=== PATIENT | male | born 1965 | race Hispanic/Latino ===

== ENCOUNTER 2024-05-06 08:31 | Inpatient (IN) | payer OTHER ==
[2024-05-06] VITALS (7 sets, daily range): BP systolic 127–152; BP diastolic 71–84; PULSE 79–92; RESP 16–18; TEMP 97.9–98.4; O2SAT 100
[~2024-05-06] VITALS: Ht 177.8 cm; Wt 74.4 kg
[~2024-05-06 08:31] MED LIST: DOXYCYCLINE HY100 MG PO; LEVEMIR100 UNIT/1 SC; LISINOPRIL10 MG PO; NEURONTIN100 MG PO; NOVOLIN R100 UNIT/1 SC
[2024-05-06 09:33] LABS: BASOPHILS % 0.5 % (0.0-1.0); EOSINOPHILS # (AUTO) 0.2 (0.0-0.4); EOSINOPHILS % 1.7 % (0.0-6.0); HEMATOCRIT 42.3 % (38.2-49.6); HEMOGLOBIN 14.1 g/dL (14.0-18.0); LYMPHOCYTES % 22.7 % (18.0-39.1); MEAN CORPUSCULAR HEMOGLOBIN 32.9 pg (28-32); MEAN CORPUSCULAR HGB CONC 33.3 g/dL (31-35); MEAN CORPUSCULAR VOLUME 98.8 fL (81-99); MONOCYTES # (AUTO) 0.7 (0.2-0.8); MONOCYTES % 7.5 % (4.4-11.3); NEUTROPHILS % 67.1 % (38.7-80.0); PLATELET COUNT 198 x10e3/uL (140-360); RED BLOOD COUNT 4.28 x10e6/uL (4.3-5.7); RED CELL DISTRIBUTION WIDTH 12.2 % (11.7-14.4); WHITE BLOOD COUNT 8.85 x10e3/uL (4.8-10.8)
[2024-05-06] MEDS: Vancomycin IV 1 GM in SODIUM CHLORIDE 0.9% 250ML 250 ML IV ONE (09:59)
[2024-05-06 10:07] LABS: ALBUMIN/GLOBULIN RATIO 1.3 (0.8-2.0); ANION GAP 16.5 mmol/L (8-16); BILIRUBIN,TOTAL 0.7 mg/dL (0.2-1.2); CALCIUM 9.9 mg/dL (8.4-10.2); CREATININE, SERUM 0.83 mg/dL (0.72-1.25); POTASSIUM 4.5 mmol/L (3.5-5.1); TOTAL PROTEIN 7.1 g/dL (6.5-8.1)
[2024-05-06] MEDS ORDERED: ONDANSETRON HCL INJ 2MG/ML 2ML 2 MG/ML VIAL IV PRN (12:30)
[2024-05-06] MEDS ORDERED: SODIUM CHLORIDE FLUSH 10 ML SYR INJ PRN (12:30)
[2024-05-06] MEDS ORDERED: DEXTROSE 50% SYRINGE 50 ML IV PRN (16:30)
[2024-05-06] MEDS: INSULIN REGULAR, HUMAN 100 UNIT/1 ML SQ SCH (16:48)
[2024-05-06] MEDS ORDERED: ACETAMINOPHEN 325 MG TAB PO PRN (17:15)
[2024-05-06] MEDS ORDERED: HYDRALAZINE HCL 20 MG/ML VIAL IV PRN (17:15)
[2024-05-06] MEDS ORDERED: BISACODYL 10 MG SUPP PR PRN (17:15)
[2024-05-06] MEDS ORDERED: NOVOLIN R100 UNIT/3 SC (17:53)
[2024-05-06] MEDS ORDERED: PRAVASTATIN SOD20 MG PO (17:53)
[2024-05-06] MEDS ORDERED: INSULIN DETEMIR SC (17:53)
[2024-05-06] MEDS ORDERED: Morphine 2mg Syringe 2 MG/ML SYR IV PRN (21:00)
[2024-05-06] MEDS ORDERED: HYDROCODONE/APAP 5MG-325MG TAB PO PRN (21:00)
[2024-05-06] MEDS: SIMVASTATIN 20 MG TAB PO SCH (21:02)
[2024-05-06] MEDS: LISINOPRIL 10 MG TAB PO SCH (21:03)
[2024-05-06] MEDS: Vancomycin IV 1 GM in SODIUM CHLORIDE 0.9% 250ML 250 ML IV SCH (21:06)
[2024-05-06] MEDS: INSULIN GLARGINE 100 UNITS/ML VIAL SQ SCH (21:15)
[2024-05-07 04:40] VITALS: BP 141/83; PULSE 91; RESP 18; TEMP 97.9; O2SAT 100
[2024-05-07 05:45] LABS: BASOPHILS # (AUTO) 0.1 (0.0-0.1); BASOPHILS % 0.9 % (0.0-1.0); EOSINOPHILS # (AUTO) 0.2 (0.0-0.4); HEMATOCRIT 41.4 % (38.2-49.6); HEMOGLOBIN 13.9 g/dL (14.0-18.0); LYMPHOCYTES # (AUTO) 1.7 (1.0-3.2); LYMPHOCYTES % 29.3 % (18.0-39.1); MEAN CORPUSCULAR HEMOGLOBIN 32.9 pg (28-32); MEAN CORPUSCULAR HGB CONC 33.6 g/dL (31-35); MEAN CORPUSCULAR VOLUME 98.1 fL (81-99); MONOCYTES # (AUTO) 0.5 (0.2-0.8); MONOCYTES % 8.2 % (4.4-11.3); NEUTROPHILS # (AUTO) 3.3 (2.1-6.9); NEUTROPHILS % 58.2 % (38.7-80.0); PLATELET COUNT 194 x10e3/uL (140-360); RED BLOOD COUNT 4.22 x10e6/uL (4.3-5.7)
[2024-05-07 06:02] LABS: INR 0.96; PROTHROMBIN TIME 13.3 seconds (11.9-14.5)
[2024-05-07 06:03] LABS: PARTIAL THROMBOPLASTIN TIME 27.8 seconds (23.8-35.5)
[2024-05-07 06:16] LABS: ALBUMIN 3.5 g/dL (3.5-5.0); ALBUMIN/GLOBULIN RATIO 1.3 (0.8-2.0); ANION GAP 14.2 mmol/L (8-16); BILIRUBIN,TOTAL 0.7 mg/dL (0.2-1.2); CREATININE, SERUM 0.82 mg/dL (0.72-1.25); POTASSIUM 4.2 mmol/L (3.5-5.1); TOTAL PROTEIN 6.2 g/dL (6.5-8.1)
[2024-05-07 06:46] LABS: CHOL/HDL RATIO 4.9 (3.9-4.7); MAGNESIUM 1.7 MG/DL (1.3-2.1)
[2024-05-07 07:57] VITALS: BP 145/77; PULSE 96; RESP 16; TEMP 98.6; O2SAT 98
[2024-05-07 07:58] VITALS: BP 145/77; PULSE 96; RESP 16; TEMP 98.6; O2SAT 98
[2024-05-07] MEDS: NICOTINE 14 MG/EA PATCH TOP SCH (09:11)
[2024-05-07] MEDS: DOCUSATE SODIUM 100 MG CAP PO SCH (09:11)
[2024-05-07] MEDS: SENNOSIDES 8.6 MG TAB PO SCH (09:11)
[2024-05-07 11:35] VITALS: BP 119/71; PULSE 82; RESP 18; TEMP 98.6; O2SAT 98
[2024-05-07 15:30] VITALS: BP 99/58; PULSE 81; RESP 16; TEMP 98.6; O2SAT 99
[2024-05-07 17:08] LABS: THYROID STIMULATING HORMONE 1.34 uIU/mL (0.350-4.940)
[2024-05-07] MEDS: MAGNESIUM SULFATE 2GM/50ML 50 ML IV ONE (18:41)
[2024-05-07 20:00] VITALS: BP 127/68; PULSE 78; RESP 18; TEMP 98.4; O2SAT 98
[2024-05-07] MEDS: INSULIN GLARGINE 100 UNITS/ML VIAL SQ SCH (21:18)
[2024-05-08] VITALS (7 sets, daily range): BP systolic 124–147; BP diastolic 69–78; PULSE 73–81; RESP 18–20; TEMP 97.6–98.5; O2SAT 100
[2024-05-08 06:23] LABS: BASOPHILS # (AUTO) 0.1 (0.0-0.1); BASOPHILS % 0.7 % (0.0-1.0); EOSINOPHILS # (AUTO) 0.3 (0.0-0.4); EOSINOPHILS % 4.1 % (0.0-6.0); HEMATOCRIT 40.3 % (38.2-49.6); HEMOGLOBIN 13.3 g/dL (14.0-18.0); LYMPHOCYTES # (AUTO) 1.9 (1.0-3.2); LYMPHOCYTES % 26.3 % (18.0-39.1); MEAN CORPUSCULAR HEMOGLOBIN 32.9 pg (28-32); MEAN CORPUSCULAR VOLUME 99.8 fL (81-99); MONOCYTES # (AUTO) 0.7 (0.2-0.8); MONOCYTES % 9.7 % (4.4-11.3); NEUTROPHILS # (AUTO) 4.2 (2.1-6.9); NEUTROPHILS % 58.8 % (38.7-80.0); PLATELET COUNT 180 x10e3/uL (140-360); RED BLOOD COUNT 4.04 x10e6/uL (4.3-5.7); RED CELL DISTRIBUTION WIDTH 11.7 % (11.7-14.4); WHITE BLOOD COUNT 7.08 x10e3/uL (4.8-10.8)
[2024-05-08 06:53] LABS: ANION GAP 11.3 mmol/L (8-16); CALCIUM 8.8 mg/dL (8.4-10.2); CREATININE, SERUM 0.89 mg/dL (0.72-1.25); MAGNESIUM 1.8 MG/DL (1.3-2.1); POTASSIUM 4.3 mmol/L (3.5-5.1)
[2024-05-08] MEDS: INSULIN REGULAR, HUMAN 100 UNIT/1 ML SQ SCH (08:56)
[2024-05-08] MEDS: ASPIRIN 325 MG TAB EC PO ONE (11:05)
[2024-05-08] MEDS: CLOPIDOGREL BISULFATE 75 MG TAB PO ONE (11:07)
[2024-05-08] MEDS ORDERED: SODIUM CHLORIDE 0.9% 100 ML ONE (15:25)
[2024-05-08] MEDS ORDERED: IOPAMIDOL 370 MG/ML 100 ML INFUS..BTL INJ ONE ×2 (15:25)
[2024-05-08] MEDS: ATORVASTATIN 40 MG TAB PO SCH (21:37)
[2024-05-08] MEDS: VANCOMYCIN 1.25GM/250 ML (PEG) 250 ML IV SCH (23:13)
[2024-05-09] VITALS (7 sets, daily range): BP systolic 111–158; BP diastolic 64–89; PULSE 72–84; RESP 17–19; TEMP 97.4–98.3; O2SAT 98–100
[2024-05-09 05:55] LABS: BASOPHILS % 0.6 % (0.0-1.0); EOSINOPHILS # (AUTO) 0.3 (0.0-0.4); EOSINOPHILS % 4.4 % (0.0-6.0); HEMATOCRIT 38.2 % (38.2-49.6); HEMOGLOBIN 12.8 g/dL (14.0-18.0); LYMPHOCYTES # (AUTO) 1.7 (1.0-3.2); LYMPHOCYTES % 24.4 % (18.0-39.1); MEAN CORPUSCULAR HEMOGLOBIN 32.7 pg (28-32); MEAN CORPUSCULAR HGB CONC 33.5 g/dL (31-35); MEAN CORPUSCULAR VOLUME 97.7 fL (81-99); MONOCYTES # (AUTO) 0.6 (0.2-0.8); MONOCYTES % 8.9 % (4.4-11.3); NEUTROPHILS # (AUTO) 4.1 (2.1-6.9); NEUTROPHILS % 61.3 % (38.7-80.0); PLATELET COUNT 168 x10e3/uL (140-360); RED BLOOD COUNT 3.91 x10e6/uL (4.3-5.7); RED CELL DISTRIBUTION WIDTH 11.9 % (11.7-14.4); WHITE BLOOD COUNT 6.76 x10e3/uL (4.8-10.8)
[2024-05-09 06:15] LABS: ANION GAP 11.8 mmol/L (8-16); CALCIUM 8.9 mg/dL (8.4-10.2); CREATININE, SERUM 0.74 mg/dL (0.72-1.25); POTASSIUM 3.8 mmol/L (3.5-5.1)
[2024-05-09] MEDS: CLOPIDOGREL BISULFATE 75 MG TAB PO SCH (08:26)
[2024-05-09] MEDS: ASPIRIN 81 MG ENTERIC COATED PO SCH (08:26)
[2024-05-09] MEDS: SODIUM CHLORIDE 0.9% 250ML 250 ML ONE (22:12)
[2024-05-10] VITALS: BP 135/80; PULSE 96; RESP 19; TEMP 98.4; O2SAT 100
[2024-05-10 04:00] VITALS: BP 152/88; PULSE 97; RESP 18; TEMP 98.4; O2SAT 100
[2024-05-10 08:21] VITALS: BP 146/86; PULSE 86; RESP 17; TEMP 98.7; O2SAT 98
[2024-05-10 09:25] VITALS: BP 146/86; PULSE 86; RESP 17; TEMP 98.7; O2SAT 98
[2024-05-10] MEDS ORDERED: BACTRIM DS TAB1 EACH PO (10:45)
[2024-05-10] MEDS ORDERED: ASPIRIN EC81 MG PO (10:45)
[2024-05-10] MEDS ORDERED: PLAVIX75 MG PO (10:45)
[2024-05-10] MEDS ORDERED: LEVEMIR100 UNIT/1 SC (11:07)
[2024-05-10] MEDS ORDERED: NOVOLIN R100 UNIT/3 SC (11:07)
[2024-05-10] MEDS ORDERED: ATORVASTATIN CA40 MG PO (11:46)
[2024-05-10] MEDS ORDERED: ONDANSETRON HCL 4 MG ORAL DISINTEGRATING TAB PO PRN (12:15)
== END 2024-05-10 12:15 | disposition home or self-care (01) | DRG 300 ==
LOC: ER 08:55 → ERHOLD 12:20 → MED/SURG3 13:51 → OBSVTOIN 05-07 17:06
PROVIDERS: ADMIT Internal Medicine; ATTEND Internal Medicine
DX: E11.51 Type 2 diabetes mellitus with diabetic peripheral angiopathy without gangrene (principal); L03.115 Cellulitis of right lower limb; L97.516 Non-pressure chronic ulcer of other part of right foot with bone involvement without evidence of necrosis; E11.621 Type 2 diabetes mellitus with foot ulcer; E11.42 Type 2 diabetes mellitus with diabetic polyneuropathy; E11.65 Type 2 diabetes mellitus with hyperglycemia; L03.031 Cellulitis of right toe; I25.10 Atherosclerotic heart disease of native coronary artery without angina pectoris; I10 Essential (primary) hypertension; E78.00 Pure hypercholesterolemia, unspecified; J44.9 Chronic obstructive pulmonary disease, unspecified; Z79.4 Long term (current) use of insulin; Z95.820 Peripheral vascular angioplasty status with implants and grafts; Z89.421 Acquired absence of other right toe(s); Z89.422 Acquired absence of other left toe(s); F17.210 Nicotine dependence, cigarettes, uncomplicated
CPT/HCPCS: 36415; 73706; 80048; 80053; 80061; 80202; 82948; 83036; 83735; 84443; 85025; 85610; 85730; 87040; 93925; 96372; 99284; G0378; J0692; J3475; J7050; Q9967